=== PATIENT | male | born 1985 | race Caucasian/White ===

== ENCOUNTER 2018-04-08 06:20 | Emergency (ER) | payer OTHER ==
--- NOTE | 2018-04-08 06:39 | EDM.PDOC ---
ED HPI GENERAL MEDICAL PROBLEM - General Chief Complaint: General Stated Complaint: FLU SYMPTOMS Time Seen by Provider: 04/08/18 06:38 Source of Information: Reports: Patient - History of Present Illness INITIAL COMMENTS - FREE TEXT/NARRATIVE: HISTORY AND PHYSICAL: History of present illness: [Patient presents with nasal congestion over the last month, now complaining of cough fever chills sweats no chest pain headache dizziness or palpitation no bowel or urine symptoms ] Review of systems: As per history of present illness and below otherwise all systems reviewed and negative. Past medical history: As per history of present illness and as reviewed below otherwise noncontributory. Surgical history: As per history of present illness and as reviewed below otherwise noncontributory. Social history: No reported history of drug or alcohol abuse. Family history: As per history of present illness and as reviewed below otherwise noncontributory. Physical exam: HEENT: Atraumatic, normocephalic, pupils reactive, negative for conjunctival pallor or scleral icterus, mucous membranes moist, throat clear, neck supple, nontender, trachea midline. Sinus tenderness right greater than left Lungs: Clear to auscultation, breath sounds equal bilaterally, chest nontender. Heart: S1S2, regular, negative for clicks, rubs, or JVD. Abdomen: Soft, nondistended, nontender. Negative for masses or hepatosplenomegaly. Negative for costovertebral tenderness. Pelvis: Stable nontender. Genitourinary: Deferred. Rectal: Deferred. Extremities: Atraumatic, negative for cords or calf pain. Neurovascular unremarkable. Neuro: Awake, alert, oriented. Cranial nerves II through XII unremarkable. Cerebellum unremarkable. Motor and sensory unremarkable throughout. Exam nonfocal. Diagnostics: [Influenza/strep chest 2 views ] Therapeutics: [ DuoNeb ]Levaquin Impression: Sinusitis Definitive disposition and diagnosis as appropriate pending reevaluation and review of above. - Related Data Allergies Allergy/AdvReac Type Severity Reaction Status Date / Time Penicillins Allergy Hives Verified 04/08/18 06:33 Home Meds: Home Meds Losartan/Hydrochlorothiazide [Losartan-HCTZ 100-25 MG] 1 each PO DAILY 04/08/18 [History] ED ROS GENERAL - Review of Systems Review Of Systems: See Below ED EXAM, GENERAL - Physical Exam Exam: See Below Course - Vital Signs Last Recorded V/S: Last Vital Signs Temp 97.9 F 04/08/18 06:30 Pulse 83 04/08/18 06:30 Resp 24 H 04/08/18 06:30 BP 174/89 H 04/08/18 06:30 Pulse Ox 96 04/08/18 06:30 - Orders/Labs/Meds Orders: Active Orders 24 hr Category Date Time Status Chest 2V [CR] Stat Exams 04/08/18 06:33 Taken CULTURE STREP A CONFIRMATION [RM] Stat Lab 04/08/18 06:21 Results STREP SCRN A RAPID W CULT CONF [RM] Stat Lab 04/08/18 06:21 Results Departure - Departure Time of Disposition: 07:02 Disposition: Home, Self-Care 01 Condition: Good Clinical Impression: Sinusitis, Pulmonary infiltrate on chest x-ray - Discharge Information Referrals: PCP,None [Primary Care Provider] - Forms: ED Department Discharge Additional Instructions: The following information is given to patients seen in the emergency department who are being discharged to home. This information is to outline your options for follow-up care. We provide all patients seen in our emergency department with a follow-up referral. The need for follow-up, as well as the timing and circumstances, are variable depending upon the specifics of your emergency department visit. If you don't have a primary care physician on staff, we will provide you with a referral. We always advise you to contact your personal physician following an emergency department visit to inform them of the circumstance of the visit and for follow-up with them and/or the need for any referrals to a consulting specialist. The emergency department will also refer you to a specialist when appropriate. This referral assures that you have the opportunity for follow-up care with a specialist. All of these measure are taken in an effort to provide you with optimal care, which includes your follow-up. Under all circumstances we always encourage you to contact your private physician who remains a resource for coordinating your care. When calling for follow-up care, please make the office aware that this follow-up is from your recent emergency room visit. If for any reason you are refused follow-up, please contact the [facility] emergency department at and asked to speak to the emergency department charge nurse. - My Orders Last 24 Hours: My Active Orders 04/08/18 06:21 CULTURE STREP A CONFIRMATION [RM] Stat STREP SCRN A RAPID W CULT CONF [RM] Stat 04/08/18 06:33 Chest 2V [CR] Stat - Assessment/Plan Last 24 Hours: My Active Orders 04/08/18 06:21 CULTURE STREP A CONFIRMATION [RM] Stat STREP SCRN A RAPID W CULT CONF [RM] Stat 04/08/18 06:33 Chest 2V [CR] Stat
[2018-04-08] MEDS ORDERED: Albuterol/Ipratropium 3.0-0.5 MG/3 ML Neb Soln NEB ONE (07:41)
--- NOTE | 2018-04-10 12:10 | CR ---
EXAM DATE: 04/08/18 PATIENT'S AGE: 32 Patient: EMILIANA FISHER Facility: [facility] Site . Site : 1985 Study: XRay-Chest -04/08/2018 6:57:06 AM Ordering Physician: Estella Gupta Final Report: INDICATION: 3 images. no prior. chest pain/shortness of breath INDICATION: Chest pain/shortness of breath. TECHNIQUE: Chest 2 views. COMPARISON: None FINDINGS: Cardiovascular and mediastinum: Heart size and vasculature are normal in caliber and appearance. Mediastinum is within normal limits. Lungs and pleural spaces: Lungs are clear. No sign of infiltrate or mass. No sign of pleural effusion. No pneumothorax. Bones and soft tissues: No significant findings. IMPRESSION: Lungs are clear. Dictated by Dae Mcleod MD @ 04/08/2018 6:58:38 AM Dictated by: Dae Mcleod MD @ 04/08/2018 06:58:44 Signed by: Dae Mcleod MD @04/08/2018 6:58:44 AM (Electronic Signature) Report Signed by Proxy. [facility]
== END 2018-04-08 08:07 | disposition home or self-care (01) ==
LOC: MW.ED 06:20
DX: J32.9 Chronic sinusitis, unspecified (principal); R91.8 Other nonspecific abnormal finding of lung field; Z88.0 Allergy status to penicillin; Z79.899 Other long term (current) drug therapy
CPT/HCPCS: 71046; 71046-26; 87081; 87804; 87880-QW; 94640; 99283; 99284-25; J7620-GY

== ENCOUNTER 2018-10-24 10:33 | Emergency (ER) | payer OTHER ==
--- NOTE | 2018-10-24 12:42 | EDM.PDOC ---
ED HPI GENERAL MEDICAL PROBLEM - General Chief Complaint: Lower Extremity Injury/Pain Stated Complaint: POPPED SOMETHING IN LEFT KNEE Time Seen by Provider: 10/24/18 11:49 Source of Information: Reports: Patient History Limitations: Reports: No Limitations - History of Present Illness INITIAL COMMENTS - FREE TEXT/NARRATIVE: HISTORY AND PHYSICAL: History of present illness: Patient is a 32-year-old male presents to the ED today with concern of left knee injury that occurred just prior to arrival to the ED. Patient states he was stepping up into his car when his left knee felt like it that popped. Patient states since then he's had a hard time putting weight on the left knee and that the knee hurts more on the outside. Patient denies any prior injury to the knee or any other symptoms or concerns. Patient states he did not fall and did not hit his head or lose consciousness. Patient denies fever, chills, chest pain, shortness of breath, or cough. Denies headache, neck stiff ness, change in vision, syncope, or near syncope. Denies nausea, vomiting, abdominal pain, diarrhea, constipation, or dysuria. Has not noted any blood in urine or stool. Patient has been eating and drinking appropriately. Review of systems: As per history of present illness and below otherwise all systems reviewed and negative. Past medical history: As per history of present illness and as reviewed below otherwise noncontributory. Surgical history: As per history of present illness and as reviewed below otherwise noncontributory. Social history: See social history for further information Family history: As per history of present illness and as reviewed below otherwise noncontributory. Physical exam: Physical exam is limited due to body habitus. General: Patient is alert, oriented, and in no acute distress. Patient sitting comfortably on exam table. HEENT: Atraumatic, normocephalic, pupils equal and reactive bilaterally, negative for conjunctival pallor or scleral icterus, mucous membranes moist, TMs normal bilaterally, throat clear, neck supple, nontender, trachea midline. No drooling or trismus noted. No meningeal signs. No hot potato voice noted. Lungs: Clear to auscultation, breath sounds equal bilaterally, chest nontender. Heart: S1S2, regular rate and rhythm without overt murmur Abdomen: Soft, nondistended, nontender. Negative for masses or hepatosplenomegaly. Negative for costovertebral tenderness. Pelvis: Stable nontender. Genitourinary: Deferred. Rectal: Deferred. Skin: Intact, warm, dry. No lesions or rashes noted. Extremities: Atraumatic, negative for cords or calf pain. Neurovascular unremarkable. No obvious deformity of the left knee. Patient does have full range of motion of the left knee but does have pain with doing so. Patient does have pain with varus stress of the knee. Dorsalis posterior tibial pulses grossly intact the left 70 with capillary refill less than 2 seconds. Neuro: Awake, alert, oriented. Cranial nerves II through XII unremarkable. Cerebellum unremarkable. Motor and sensory unremarkable throughout. Exam nonfocal. Notes: Discussed the importance for follow-up with an orthopedic provider. Voices understanding and is agreeable to plan of care. Denies any further questions or concerns at this time. Diagnostics: Knee x-ray Therapeutics: ajmie wrap and crutches (due to patient's body habitus; knee immobilizer does not fit) Prescription: Diclofenac Impression: Left knee injury Plan: 1. Rest, ice, elevate the affected extremity. You can apply ice 15 minutes on, 15 minutes off. 2. Tylenol and/or Ibuprofen as directed for pain management or discomfort. 3. Follow up with the Orthopedic provider as discussed. Return to the ED as needed and as discussed. Definitive disposition and diagnosis as appropriate pending reevaluation and review of above. Left Knee Pain Score (Numeric/FACES): 7 - Related Data Allergies Allergy/AdvReac Type Severity Reaction Status Date / Time Penicillins Allergy Hives Verified 10/24/18 11:18 Home Meds: Home Meds Diclofenac Sodium [Voltaren] 75 mg PO DAILY 10/24/18 [History] Past Medical History HEENT History: Reports: Impaired Vision Cardiovascular History: Reports: Hypertension Respiratory History: Reports: Sleep Apnea Other Respiratory History: wears cpap Gastrointestinal History: Reports: None Genitourinary History: Reports: None Musculoskeletal History: Reports: Fracture Other Musculoskeletal History: R Heel, ankle, leg Neurological History: Reports: None Psychiatric History: Reports: None Endocrine/Metabolic History: Reports: None Hematologic History: Reports: None Immunologic History: Reports: None Oncologic (Cancer) History: Reports: None Dermatologic History: Reports: None - Infectious Disease History Infectious Disease History: Reports: Chicken Pox Social & Family History - Family History Family Medical History: Noncontributory - Tobacco Use Smoking Status *Q: Never Smoker Second Hand Smoke Exposure: No - Caffeine Use Caffeine Use: Reports: Coffee - Recreational Drug Use Recreational Drug Use: No Review of Systems - Review of Systems Review Of Systems: ROS reveals no pertinent complaints other than HPI. ED EXAM, GENERAL - Physical Exam Exam: See Below (see dictation) Course - Vital Signs Last Recorded V/S: Last Vital Signs Temp 36.3 C 10/24/18 11:19 Pulse 74 10/24/18 11:19 Resp 18 10/24/18 11:19 BP 181/86 H 10/24/18 11:19 Pulse Ox 95 10/24/18 11:19 - Orders/Labs/Meds Orders: Active Orders 24 hr Category Date Time Status DME for Discharge [COMM] Stat Oth 10/24/18 12:42 Ordered Departure - Departure Time of Disposition: 12:55 Disposition: Home, Self-Care 01 Clinical Impression: Knee injury Qualifiers: Encounter type: initial encounter Laterality: left Qualified Code(s): S89.92XA - Unspecified injury of left lower leg, initial encounter - Discharge Information Instructions: Knee Sprain, Adult, [id number] Referrals: PCP,None [Primary Care Provider] - Forms: ED Department Discharge Additional Instructions: The following information is given to patients seen in the emergency department who are being discharged to home. This information is to outline your options for follow-up care. We provide all patients seen in our emergency department with a follow-up referral. The need for follow-up, as well as the timing and circumstances, are variable depending upon the specifics of your emergency department visit. If you don't have a primary care physician on staff, we will provide you with a referral. We always advise you to contact your personal physician following an emergency department visit to inform them of the circumstance of the visit and for follow-up with them and/or the need for any referrals to a consulting specialist. The emergency department will also refer you to a specialist when appropriate. This referral assures that you have the opportunity for follow-up care with a specialist. All of these measure are taken in an effort to provide you with optimal care, which includes your follow-up. Under all circumstances we always encourage you to contact your private physician who remains a resource for coordinating your care. When calling for follow-up care, please make the office aware that this follow-up is from your recent emergency room visit. If for any reason you are refused follow-up, please contact the [facility] Emergency Department at and asked to speak to the emergency department charge nurse. [facility] [address] [place] [address] [address] [facility] Professional Building [address] [facility], [address] [place] [address] Dr Christopher, Orthopedist [facility] [address] [place] [address] Dr Read - Dr Sykes - Dr [facility] [address] [place] [address] [facility] [address] [place] [address] 1. Rest, ice, elevate the affected extremity. You can apply ice 15 minutes on, 15 minutes off. 2. Tylenol and/or Ibuprofen as directed for pain management or discomfort. 3. Follow up with the Orthopedic provider as discussed. Return to the ED as needed and as discussed. - My Orders Last 24 Hours: My Active Orders 10/24/18 12:42 DME for Discharge [COMM] Stat - Assessment/Plan Last 24 Hours: My Active Orders 10/24/18 12:42 DME for Discharge [COMM] Stat
--- NOTE | 2018-10-24 12:52 | CR ---
Left knee: AP, lateral and sunrise patellar views were obtained of the left knee. Mild medial joint space narrowing is seen. Lateral joint space is preserved. Spur is noted at the attachment of the quadriceps tendon and patellar ligament off the patella. No joint effusion is seen. Patellofemoral joint is unremarkable. No discrete fracture or other abnormality is appreciated. Impression: 1. Mild medial joint space narrowing. 2. No additional abnormality is appreciated on left knee exam. Diagnostic code #2 MTDD
== END 2018-10-24 13:03 | disposition home or self-care (01) ==
LOC: MW.ED 10:33
DX: S89.92XA Unspecified injury of left lower leg, initial encounter (principal); I10 Essential (primary) hypertension; Z88.0 Allergy status to penicillin; W22.8XXA Striking against or struck by other objects, initial encounter
CPT/HCPCS: 73562-26-LT; 73562-LT; 99282; 99283-25

== ENCOUNTER 2020-06-22 20:19 | Emergency (ER) | payer OTHER ==
[2020-06-22] MEDS ORDERED: Sodium Chloride 0.9% 2.5 ML Syringe FLUSH PRN (20:32)
[2020-06-22] MEDS ORDERED: Sodium Chloride 0.9% 10 ML Syringe FLUSH PRN (20:32)
[2020-06-22] MEDS ORDERED: Pantoprazole 40 MG in Sodium Chloride 0.9% 10 ML IV ONE (20:32)
[2020-06-22] MEDS ORDERED: Ondansetron 4 MG/2 ML SDV IVPUSH ONE (20:32)
--- NOTE | 2020-06-22 20:36 | EDM.PDOC ---
ED HPI GENERAL MEDICAL PROBLEM - General Stated Complaint: SEVERE ABDOMINAL PAIN Time Seen by Provider: 06/22/20 20:23 - History of Present Illness INITIAL COMMENTS - FREE TEXT/NARRATIVE: History of present illness: [] The patient has chest pain. It is in the center of her chest. And severe. It started at 9 AM after breakfast. He got little better after he digested the meal. It was even better with exertion sometimes during the day. This evening after the meal again his pain returned and was severe again. It is in the center of his chest. It is associated with diaphoresis nausea and vomiting. There is no blood or coffee-ground in the vomitus. 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 He is lost quite a bit of weight and is going to the gym on a regular basis. He has chronic ankle edema and its not worse now. The patient is a non-smoker is not diabetic and has no elevated cholesterol by history. He is treated for hypertension. The only coronary vessel disease strokes or aneurysms in the family is a grandparent with coronary vessel disease and in later years. Review of systems: As per history of present illness and below otherwise all systems reviewed and negative. Past medical history: As per history of present illness and as reviewed below otherwise noncontributory. Surgical history: As per history of present illness and as reviewed below otherwise noncontributory. Social history: No reported history of drug or alcohol abuse. Family history: As per history of present illness and as reviewed below otherwise noncontributory. Physical exam: Constitutional -patient is still well over desirable body weight for his height. Well developed, well-nourished and in no acute distress HEENT - normocephalic, no evidence of trauma - external nose and mouth normal - no mass in neck and no JVD - mucosae moist EYES - full EOM, PERRL, no icterus - no evidence of inflammation, injection, or drainage Respiratory - no respiratory distress, equal bilateral expansion, lungs clear to auscultation and no abnormal lung sounds Cardiovascular - Regular Rhythm with S1 and S2 appreciated and no murmur, gallop or rub. GI -slightly tender in the epigastrium only. Abdomen soft without distension or organomegaly - normal bowel sounds - no guard or rebound Musculoskeletal no gross deformity of long bones or joints - no tenderness, swelling or edema Neurologic - Alert and oriented times four - CN II-XII grossly intact - motor sensory and coordination symmetrically normal Psychiatric - appropriate mood and affect with normal thought content Hematologic - No petechiae or purpura - mucosa appropriate color and sclera not pale - normal nail bed color and refill Integument - no rash or evidence of trauma - normal turgor Diagnostics: [] Therapeutics: [] Impression: [] Plan: [] Definitive disposition and diagnosis as appropriate pending reevaluation and review of above. Upper Chest Pain Score (Numeric/FACES): 9 - Related Data Allergies Allergy/AdvReac Type Severity Reaction Status Date / Time Penicillins Allergy Hives Verified 10/24/18 11:18 Home Meds: Home Meds Diclofenac Sodium [Voltaren] 75 mg PO DAILY 10/24/18 [History] Acetaminophen/HYDROcodone [Round O 325-10 MG] 1 tab PO Q4H PRN #14 tab 06/23/20 [Rx] Ondansetron [Zofran ODT] 4 mg PO Q6H PRN #10 tab.dis 06/23/20 [Rx] Past Medical History HEENT History: Reports: Impaired Vision Cardiovascular History: Reports: Hypertension Respiratory History: Reports: Sleep Apnea Other Respiratory History: wears cpap Gastrointestinal History: Reports: None Genitourinary History: Reports: None Musculoskeletal History: Reports: Fracture Other Musculoskeletal History: R Heel, ankle, leg Neurological History: Reports: None Psychiatric History: Reports: None Endocrine/Metabolic History: Reports: None Hematologic History: Reports: None Immunologic History: Reports: None Oncologic (Cancer) History: Reports: None Dermatologic History: Reports: None - Infectious Disease History Infectious Disease History: Reports: Chicken Pox Social & Family History - Family History Family Medical History: No Pertinent Family History - Caffeine Use Caffeine Use: Reports: Coffee ED ROS GENERAL - Review of Systems Review Of Systems: Comprehensive ROS is negative, except as noted in HPI. ED EXAM, GENERAL - Physical Exam Exam: See Below Free Text/Narrative:: My physical exam is in the HPI #1 Interpretation EKG Interpretation Comments: EKG sinus rhythm. Heart rate 63. ID intervals 162. QT duration 420. [place] 61. Normal QRS. Normal ST and T. No prior for comparison. Impression normal. Course - Vital Signs Text/Narrative:: 2125 hrs. patient suffering with chest pain. GI cocktail and pantoprazole did not help. Nitroglycerin and aspirin ordered. Will revert that her chest pain protocol even though he is low risk. 2159 hrs. no help from the nitroglycerin and aspirin. Patient still in pain. See orders. Differential diagnosis includes biliary colic. We will repeat the troponin because the possibility of coronary vessel disease. 2318 hrs. patient's pain got better with morphine without relief occurred after his ultrasound has been accomplished. Ultrasound appears to show a gallstone and upper limits of normal in the gall duct and the common bile duct. Radiologist interpretation pending 00 27 hours the patient's pain did come under control in the emergency department and he did not vomit. The ultrasound showed a large gallstone and no gallbladder wall thickening. The common bile duct was at the upper limits of normal at 6 mm. The plan is to have the patient contact surgery for elective cholecystectomy. Last Recorded V/S: Last Vital Signs Temp 35.6 C L 06/22/20 20:35 Pulse 68 06/22/20 23:27 Resp 18 06/22/20 23:27 BP 176/96 H 06/22/20 23:27 Pulse Ox 95 06/22/20 23:27 - Orders/Labs/Meds Orders: Active Orders 24 hr Category Date Time Status EKG Documentation Completion [RC] AM Care 06/22/20 20:32 Active UA W/SAHRA RFLX IF INDICATED [URIN] Stat Lab 06/22/20 20:33 Ordered Sodium Chloride 0.9% [Saline Flush] Med 06/22/20 20:32 Active 10 ml FLUSH ASDIRECTED PRN Sodium Chloride 0.9% [Saline Flush] Med 06/22/20 20:32 Active 2.5 ml FLUSH ASDIRECTED PRN Saline Lock Insert [OM.PC] Stat Oth 06/22/20 20:32 Ordered Medication Orders Sodium Chloride (Sodium Chloride 0.9% 10 Ml Syringe) 10 ml FLUSH ASDIRECTED PRN PRN Reason: Keep Vein Open Last Admin: 06/22/20 21:17 Dose: 10 ml Documented by: YEISON Sodium Chloride (Sodium Chloride 0.9% 2.5 Ml Syringe) 2.5 ml FLUSH ASDIRECTED PRN PRN Reason: Keep Vein Open Last Admin: 06/22/20 21:16 Dose: 2.5 ml Documented by: YEISON Labs: Laboratory Tests 06/22/20 06/22/20 06/22/20 Range/Units 21:05 21:05 23:03 WBC 10.48 (4.0-11.0) K/uL RBC 5.55 (4.50-5.90) M/uL Hgb 16.3 (13.0-17.0) g/dL Hct 48.0 (38.0-50.0) % MCV 86.5 (80.0-98.0) fL MCH 29.4 (27.0-32.0) pg MCHC 34.0 (31.0-37.0) g/dL RDW Std Deviation 44.2 (28.0-62.0) fl RDW Coeff of Bruno 14 (11.0-15.0) % Plt Count 273 (150-400) K/uL MPV 11.20 (7.40-12.00) fL Neut % (Auto) 81.3 H (48.0-80.0) % Lymph % (Auto) 10.4 L (16.0-40.0) % [place] % (Auto) 7.9 (0.0-15.0) % Eos % (Auto) 0.2 (0.0-7.0) % Baso % (Auto) 0.2 (0.0-1.5) % Neut # (Auto) 8.5 H (1.4-5.7) K/uL Lymph # (Auto) 1.1 (0.6-2.4) K/uL [place] # (Auto) 0.8 (0.0-0.8) K/uL Eos # (Auto) 0.0 (0.0-0.7) K/uL Baso # (Auto) 0.0 (0.0-0.1) K/uL Nucleated RBC % 0.0 /100WBC Nucleated RBCs # 0 K/uL Sodium 140 (136-148) mmol/L Potassium 3.9 (3.5-5.1) mmol/L Chloride 101 (98-107) mmol/L Carbon Dioxide 27.2 (21.0-32.0) mmol/L BUN 11 (7.0-18.0) mg/dL Creatinine 1.2 (0.8-1.3) mg/dL Est Cr Clr Drug Dosing 93.41 mL/min Estimated GFR (MDRD) > 60.0 ml/min Glucose 129 H (74-106) mg/dL Calcium 8.2 L (8.5-10.1) mg/dL Magnesium 1.9 (1.8-2.4) mg/dL Total Bilirubin 0.3 (0.2-1.0) mg/dL AST 32 (15-37) IU/L ALT 46 (14-63) IU/L Alkaline Phosphatase 82 (46-116) U/L Troponin I < 0.050 < 0.050 (0.000-0.056) ng/mL Total Protein 8.8 H (6.4-8.2) g/dL Albumin 4.2 (3.4-5.0) g/dL Globulin 4.6 H (2.6-4.0) g/dL Albumin/Globulin Ratio 0.9 (0.9-1.6) Lipase 67 L (73-393) U/L Meds: Medications Generic Name Dose Route Start Last Admin Trade Name Abunido PRN Reason Stop Dose Admin Sodium Chloride 10 ml 06/22/20 20:32 06/22/20 21:17 Sodium Chloride 0.9% 10 Ml Syringe FLUSH 10 ml ASDIRECTED PRN Administration Keep Vein Open Sodium Chloride 2.5 ml 06/22/20 20:32 06/22/20 21:16 Sodium Chloride 0.9% 2.5 Ml Syringe FLUSH 2.5 ml ASDIRECTED PRN Administration Keep Vein Open Discontinued Medications Generic Name Dose Route Start Last Admin Trade Name Abundio PRN Reason Stop Dose Admin Aspirin 324 mg 06/22/20 21:24 06/22/20 21:31 Aspirin 81 Mg Tab.Chew PO 06/22/20 21:25 324 mg ONETIME ONE Administration Al Hydroxide/Mg Hydroxide 15 0 ml 06/22/20 20:54 06/22/20 20:58 ml/ Lidocaine HCl 5 ml PO 06/22/20 20:55 1 each ONETIME ONE Administration Pantoprazole Sodium 40 mg/ 10 mls @ 300 mls/hr 06/22/20 20:32 06/22/20 20:57 Sodium Chloride IV 06/22/20 20:33 300 mls/hr NOW ONE Administration Morphine Sulfate 4 mg 06/22/20 22:00 06/22/20 22:19 Morphine 4 Mg/Ml Syringe IVPUSH 06/22/20 22:01 4 mg ONETIME ONE Administration Morphine Sulfate 4 mg 06/22/20 23:17 06/22/20 23:22 Morphine 4 Mg/Ml Syringe IVPUSH 06/22/20 23:18 4 mg ONETIME ONE Administration Nitroglycerin 0.4 mg 06/22/20 21:24 06/22/20 21:47 Nitroglycerin 0.4 Mg Tab.Sl SL 0.4 mg Q5M PRN Administration Chest Pain Ondansetron HCl 4 mg 06/22/20 20:32 06/22/20 20:57 Ondansetron 4 Mg/2 Ml Sdv IVPUSH 06/22/20 20:33 4 mg ONETIME ONE Administration Departure - Departure Time of Disposition: 00:28 Disposition: Home, Self-Care 01 Condition: Good Clinical Impression: Biliary colic, Cholelithiasis - Discharge Information Prescriptions: Acetaminophen/HYDROcodone [Round O 325-10 MG] 1 tab PO Q4H PRN #14 tab PRN Reason: Pain (Severe 7-10) Ondansetron [Zofran ODT] 4 mg PO Q6H PRN #10 tab.dis PRN Reason: Nausea/Vomiting Instructions: Cholelithiasis, Biliary Colic, Adult Referrals: PCP,None [Primary Care Provider] - Additional Instructions: You should return if you have a high fever, confusion, intolerable pain, vomiting and inability to tolerate oral intake. Otherwise you should have an elective cholecystectomy. [facility] - General Surgery [address], [address] [place] [address] The following information is given to patients seen in the emergency department who are being discharged to home. This information is to outline your options for follow-up care. We provide all patients seen in our emergency department with a follow-up referral. The need for follow-up, as well as the timing and circumstances, are variable depending upon the specifics of your emergency department visit. If you don't have a primary care physician on staff, we will provide you with a referral. We always advise you to contact your personal physician following an emergency department visit to inform them of the circumstance of the visit and for follow-up with them and/or the need for any referrals to a consulting specialist. The emergency department will also refer you to a specialist when appropriate. This referral assures that you have the opportunity for follow-up care with a specialist. All of these measure are taken in an effort to provide you with optimal care, which includes your follow-up. Under all circumstances we always encourage you to contact your private physician who remains a resource for coordinating your care. When calling for follow-up care, please make the office aware that this follow-up is from your recent emergency room visit. If for any reason you are refused follow-up, please contact the [facility] Emergency Department at and asked to speak to the emergency department charge nurse. Sepsis Event Note (ED) - Focused Exam Vital Signs: Vital Signs Temp Pulse Resp BP BP Pulse Ox 06/22/20 23:27 68 18 176/96 H 95 06/22/20 22:34 72 19 158/89 H 96 06/22/20 21:47 166/93 H 06/22/20 21:40 184/92 H 06/22/20 21:31 207/116 H 06/22/20 20:35 35.6 C L 62 22 H 187/100 H 98 - My Orders Last 24 Hours: My Active Orders 06/22/20 20:32 EKG Documentation Completion [RC] AM Sodium Chloride 0.9% [Saline Flush] 10 ml FLUSH ASDIRECTED PRN Sodium Chloride 0.9% [Saline Flush] 2.5 ml FLUSH ASDIRECTED PRN Saline Lock Insert [OM.PC] Stat 06/22/20 20:33 UA W/SAHRA RFLX IF INDICATED [URIN] Stat - Assessment/Plan Last 24 Hours: My Active Orders 06/22/20 20:32 EKG Documentation Completion [RC] AM Sodium Chloride 0.9% [Saline Flush] 10 ml FLUSH ASDIRECTED PRN Sodium Chloride 0.9% [Saline Flush] 2.5 ml FLUSH ASDIRECTED PRN Saline Lock Insert [OM.PC] Stat 06/22/20 20:33 UA W/SAHRA RFLX IF INDICATED [URIN] Stat
[2020-06-22] MEDS ORDERED: Alum Hydrox/Mag Hydrox/Simeth 15 ML, Lidocaine 2% 5 ML PO ONE ×2 (20:54)
[2020-06-22] MEDS ORDERED: Aspirin 81 MG Tab.Chew PO ONE (21:24)
[2020-06-22] MEDS: Nitroglycerin 0.4 MG Tab.SL SL PRN ×3 (21:31→21:47)
[2020-06-22 21:45] LABS: BLOOD UREA NITROGEN,BUN 11 mg/dL (7.0-18.0); CARBON DIOXIDE,CO2 27.2 mmol/L (21.0-32.0); CHLORIDE,CL 101 mmol/L (98-107); GLUCOSE RANDOM 129 mg/dL (74-106); LIPASE 67 U/L (73-393); POTASSIUM,K 3.9 mmol/L (3.5-5.1); SODIUM,NA 140 mmol/L (136-148)
--- NOTE | 2020-06-22 21:51 | CR ---
INDICATION: Chest pain TECHNIQUE: Single view chest. FINDINGS: The lungs are clear. The heart, mediastinum and pulmonary vessels are of normal size. There is no evidence of pleural disease. IMPRESSION: Negative chest. Dictated by Narcisa Kimball MD @ 06/22/2020 9:50:[address] Narcisa Kimball @ Jun 22 2020 9:50PM
[2020-06-22] MEDS ORDERED: Morphine 4 MG/ML Syringe IVPUSH ONE ×2 (22:00→23:17)
--- NOTE | 2020-06-23 00:23 | US ---
INDICATION: Severe epigastric pain after meals TECHNIQUE: Multiple grayscale sonographic images of the right upper quadrant the abdomen. COMPARISON: None FINDINGS: Liver: Hepatomegaly. Markedly increased parenchymal echogenicity consistent with steatosis. Common bile duct: Measures up to 6 mm, at the upper limits of normal. Gallbladder: Shadowing stone is noted. No wall thickening or pericholecystic fluid. Pancreas: Obscured, precluding assessment. Vasculature: Normal caliber abdominal aorta. Patent intrahepatic IVC. Right kidney: Grossly unremarkable. No hydronephrosis. IMPRESSION: 1. Hepatomegaly and marked steatosis. 2. Cholelithiasis without evidence of cholecystitis. 3. Common bile duct at the upper limits of normal. 4. Nonvisualized pancreas. Dictated by Kris Zambrano MD @ 06/23/2020 12:22:[address] Kris Zambrano @ Jun 23 2020 12:22AM
== END 2020-06-23 00:39 | disposition home or self-care (01) ==
LOC: MW.ED 20:19
DX: K80.50 Calculus of bile duct without cholangitis or cholecystitis without obstruction (principal); I10 Essential (primary) hypertension; Z88.0 Allergy status to penicillin
CPT/HCPCS: 36415; 71045; 76705; 80053; 83690; 83735; 84484; 85025; 93005; 96374; 96375; 96376; 99285; A9270; C9113; J2270; J2405

== ENCOUNTER 2021-08-20 15:31 | Emergency (ER) | payer OTHER, BC ==
[2021-08-20] MEDS ORDERED: Ketorolac 30 MG/ML SDV IM STA (15:54)
[2021-08-20] MEDS ORDERED: Diazepam 5 MG Tab PO ONE (15:54)
== END 2021-08-20 17:20 | disposition home or self-care (01) ==
LOC: MW.ED 15:31
DX: S39.012A Strain of muscle, fascia and tendon of lower back, initial encounter (principal); M25.511 Pain in right shoulder; I10 Essential (primary) hypertension; E66.9 Obesity, unspecified; Z68.43 Body mass index [BMI] 50.0-59.9, adult; Z88.0 Allergy status to penicillin; Z79.899 Other long term (current) drug therapy; Z90.49 Acquired absence of other specified parts of digestive tract; X58.XXXA Exposure to other specified factors, initial encounter
CPT/HCPCS: 71046; 73030; 96372; 99283; A9270; J1885; 99284

== ENCOUNTER 2023-03-29 15:30 | Emergency (ER) | payer BC, OTHER ==
[2023-03-29 16:09] LABS: BASOPHILS ABSOLUTE AUTO 0.05 K/uL (0.00-0.20); BASOPHILS PERCENT AUTO 0.7 % (0.0-1.0); EOSINOPHILS ABSOLUTE AUTO 0.15 K/uL (0.00-0.45); EOSINOPHILS PERCENT AUTO 2.1 % (0.0-6.0); HEMOGLOBIN 14.7 g/dL (14.0-18.0); IMMATURE GRAN ABSOLUTE AUTO 0.01 K/uL (0.00-0.05); IMMATURE GRAN PERCENT AUTO 0.1 % (0.0-0.4); LYMPHOCYTES ABSOLUTE AUTO 1.92 K/uL (1.00-4.80); LYMPHOCYTES PERCENT AUTO 26.7 % (24.0-44.0); MEAN CORPUSCULAR HEMOGLOBIN 30.4 pg (28.0-32.0); MEAN CORPUSCULAR VOLUME 86.8 fL (83.0-99.0); MEAN PLATELET VOLUME 10.4 fL (9.4-12.4); MONOCYTES ABSOLUTE AUTO 0.95 K/uL (0.00-0.80); MONOCYTES PERCENT AUTO 13.2 % (0.0-8.0); NEUTROPHILS ABSOLUTE AUTO 4.12 K/uL (1.80-7.70); NEUTROPHILS PERCENT AUTO 57.2 % (41.0-71.0); PLATELET COUNT,PLT 267 K/uL (150-400); RED BLOOD CELL COUNT 4.84 M/uL (4.52-5.90)
[2023-03-29 16:31] LABS: ALBUMIN 3.8 g/dL (3.4-5.0); BILIRUBIN TOTAL 0.4 mg/dL (0.2-1.0); CALCIUM 9.1 mg/dL (8.5-10.1); CARBON DIOXIDE,CO2 27.6 mmol/L (21.0-32.0); CREATININE 1.1 mg/dL (0.8-1.3); EST CRCL DRUG DOSING (CG) 98.96 mL/min; POTASSIUM,K 3.6 mmol/L (3.5-5.1); PROTEIN TOTAL,TP 7.6 g/dL (6.4-8.2)
[2023-03-29] MEDS: Aspirin 81 MG Tab.Chew PO ONE (16:31)
[2023-03-29 18:13] LABS: CORONAVIRUS COVID-19 NAA NEGATIVE (NEGATIVE); INFLUENZA A NAA NEGATIVE (NEGATIVE); INFLUENZA B NAA NEGATIVE (NEGATIVE); RESPIRATORY SYNCYTIAL VIR NAA NEGATIVE (NEGATIVE)
[2023-03-29] MEDS: Ketorolac 30 MG/ML SDV IVPUSH ONE (19:39)
== END 2023-03-29 20:07 | disposition home or self-care (01) ==
LOC: MW.ED 15:30
DX: R07.89 Other chest pain (principal); I10 Essential (primary) hypertension; E66.9 Obesity, unspecified; Z87.891 Personal history of nicotine dependence; Z88.0 Allergy status to penicillin; Z79.899 Other long term (current) drug therapy
CPT/HCPCS: 0241U; 36415; 71045; 80053; 83880; 84484; 85025; 96374; 99285; A9270; J1885; 93010; 99284